=== PATIENT | male | born 1970 | race American Indian/Alaskan Native ===

== ENCOUNTER 2016-10-09 04:19 | Inpatient (IN) | payer MEDICAID ==
[2016-10-09 09:24] LABS: Basophils % (Auto) 0.8 % (0.0-1.8); Hematocrit 36.2 % (35.5-45.6); Hemoglobin 11.3 gm/dl (11.8-15.2); Mean Corpuscular HGB Conc 31 % (32-34); Mean Corpuscular Volume 79 fl (84-94); Platelet Count 384 K/mm3 (140-440); Red Blood Count 4.58 M/mm3 (3.65-5.03); Red Cell Distribution Width 16.2 % (13.2-15.2); White Blood Count 12.6 K/mm3 (4.5-11.0)
[2016-10-09 09:27] LABS: Mean Corpuscular Hemoglobin 25 pg (28-32)
[2016-10-09] MEDS ORDERED: NACL 0.9% 1000 ML 1,000 ML IV ONE (09:57)
--- NOTE | 2016-10-09 10:15 | XRay Report ---
LEFT ANKLE RADIOGRAPHS INDICATION: Wound infection. Evaluate for osteomyelitis. COMPARISON: None similar at this institution. FINDINGS: AP, lateral and oblique left ankle radiographs demonstrate moderate lateral soft tissue swelling with approximately 5 mm wound overlying the lateral malleolus. Subtle underlying cortical lucency also noted with possible periosteal reaction/thickening along the distal fibular neck. Intact ankle mortise, medial malleolus and talar dome contour. CONCLUSION: Left ankle lateral soft tissue swelling/ulceration and possible underlying lateral malleolus osteomyelitis, as described. Please correlate. Thank you for the opportunity to participate in this patient's care.
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
[2016-10-09 11:00] LABS: Anion Gap 20 mmol/L; BUN/Creatinine Ratio 13.75; Blood Urea Nitrogen 11 mg/dL (9-20); Calcium 8.3 mg/dL (8.4-10.2); Carbon Dioxide 20 mmol/L (22-30); Glucose 106 mg/dL (75-100); Potassium 4.4 mmol/L (3.6-5.0); Sodium 137 mmol/L (137-145)
[2016-10-09] MEDS ORDERED: LEVAQUIN 750MG/150ML 750 MG/150 ML BAG IV ONE (11:03)
[2016-10-09] MEDS ORDERED: VANCOMYCIN/NS 1 GM/250 ML 1 GM/250 ML BAG IV ONE (11:03)
[2016-10-09] MEDS ORDERED: MORPHINE IV ONE (12:02)
--- NOTE | 2016-10-09 12:59 | History and Physical Report ---
History of Present Illness History of present illness: 46 YO Male with Sacral Decub, Nicotine Dependence presents to ED for evaluation. Pt states that he has been experiencing pain and over to the left ankle and the left side of the buttock with concern for an infection of chronic wounds for the past 3 weeks, with worsening symptoms over the past 2 days. Pt denies any fever, Chills, CP, Palpitations, nausea, vomiting, chest pain, shortness of breath, or recent ill contacts. PT seen and evaluated in ED and found to have Left ankle cellulitis that is suspicious for osteomyelitis. Past History Past Medical History: other (Nicotine Dependence, Sacral Decub) Past Surgical History: bowel surgery, Other (back surgery) Social history: single, Lives alone, smoking. denies: alcohol abuse, prescription drug abuse, IV drug use Family history: hypertension Medications and Allergies Allergies Allergy/AdvReac Type Severity Reaction Status Date / Time No Known Allergies Allergy Unverified 10/09/16 05:00 Home Medications Medication Instructions Recorded Confirmed Last Taken Type Cyclobenzaprine [Flexeril] 10 mg PO HS 10/09/16 10/09/16 10/08/16 History Gabapentin [Neurontin] 600 mg PO TID 10/09/16 10/09/16 10/09/16 History Lisinopril [Zestril] 20 mg PO QDAY 10/09/16 10/09/16 10/08/16 History Oxycodone HCl/Acetaminophen 1 each PO Q6H 10/09/16 10/09/16 10/09/16 History [Percocet 7.5/325 mg] Review of Systems All systems: negative Constitutional: other (Left ankle pain, ) Exam - Constitutional Vitals: Temp Pulse Resp BP Pulse Ox 98.8 F 110 H 16 119/78 97 10/09/16 04:51 10/09/16 09:53 10/09/16 09:53 10/09/16 09:53 10/09/16 09:53 General appearance: Present: mild distress, cachectic - EENT Eyes: Present: PERRL ENT: hearing intact, clear oral mucosa - Neck Neck: Present: supple, normal ROM - Respiratory Respiratory effort: normal Respiratory: bilateral: CTA - Cardiovascular Heart Sounds: Present: S1 & S2. Absent: rub, click - Extremities Extremities: pulses symmetrical, No edema Extremity abnormal: ulceration, erythema, pulses diminished Peripheral Pulses: abnormal - Abdominal General gastrointestinal: Present: soft, non-tender, non-distended, normal bowel sounds Male genitourinary: Present: normal - Integumentary Integumentary: Present: clear, dry, decreased turgor - Musculoskeletal Musculoskeletal: generalized weakness - Psychiatric Psychiatric: appropriate mood/affect, cooperative - Neurologic Neurologic: CNII-XII intact Results - Labs CBC & Chem 7: 10/09/16 09:05 10/09/16 10:27 Labs: Abnormal lab results 10/09/16 10/09/16 Range/Units 09:05 10:27 WBC 12.6 H (4.5-11.0) K/mm3 Hgb 11.3 L (11.8-15.2) gm/dl MCV 79 L (84-94) fl MCH 25 L (28-32) pg MCHC 31 L (32-34) % RDW 16.2 H (13.2-15.2) % [place] # 0.9 H (0.0-0.8) K/mm3 Seg Neutrophils % 75.1 H (40.0-70.0) % Seg Neutrophils # 9.5 H (1.8-7.7) K/mm3 Carbon Dioxide 20 L (22-30) mmol/L Glucose 106 H (75-100) mg/dL Calcium 8.3 L (8.4-10.2) mg/dL Assessment and Plan - Patient Problems (1) Sepsis Current Visit: Yes Status: Acute Qualifiers: Sepsis type: S Plan to address problem: Sepsis protocl: IVF, IV abx, supportive care, monitor uop q shift, (2) Sacral decubitus ulcer Current Visit: Yes Status: Acute Plan to address problem: wound care consult, Q 2 turns, supportive care. (3) Osteomyelitis of left ankle Current Visit: Yes Status: Suspected Qualifiers: Osteomyelitis type: unspecified type Qualified Code(s): M86.9 - Osteomyelitis, unspecified Plan to address problem: IV abx, wound care, wound evaluation, (4) DVT prophylaxis Current Visit: Yes Status: Acute
[2016-10-09] MEDS ORDERED: ZOFRAN IV PRN (13:24)
[2016-10-09] MEDS ORDERED: VANCOMYCIN VIAL IV ONE (13:24)
[2016-10-09] MEDS ORDERED: DUONEB *Not for PRN Use IH (13:24)
[2016-10-09] MEDS ORDERED: TYLENOL PO PRN (13:24)
[2016-10-09] MEDS: ZOSYN/NS 4.5GM/100ML 4.5 GM/100 ML VIAL IV SCH (13:38)
[2016-10-09] MEDS ORDERED: VANCOMYCIN 1,750 MG in NACL 0.9% 500 ML 500 ML IV ONE (13:45)
[2016-10-09] MEDS ORDERED: PROVENTIL IH PRN (13:50)
[2016-10-09] MEDS ORDERED: VANCOMYCIN PHARMACY TO DOSE IV SCH (14:00)
--- NOTE | 2016-10-09 14:52 | Admit Criteria Form ---
Admission Criteria Documentation: OSTEOMYELITIS Clinical Indications for Admission to Inpatient Care (Place 'X' for any and all applicable criteria) Admission is indicated by 1 or more of the following (1)(2)(3)(4)(5)(6): [X ] I. Significant systemic illness indicated by 2 or more of the following: [ ]a) Core (eg rectal) temperature greater or equal [id number](37.8C) in an adult [ ]b) Oral temperature[A] greater than or equal to 99.3 degrees F ( 37.4 degrees C) in an adult [X]c) Heart rate greater than 90 beats per minute [ ]d) Respiratory rate greater than 20 breaths per minute or PaCO2 less than 32 mm Hg (4.3 kPa) [ X]e) White blood cell count > 12,000/mm3 (12 x109/L) or < 4000/mm3 ( 4 x109/L) or > 10% band cells [ ] II. Hemodynamic instability [ ] III. Severe pain requiring acute inpatient management [ ] IV. Bacteremia [ ] V. Altered Mental status that is severe or persistent [ ] . Limb-threatening infection [ ] VII. Suspected necrotizing soft tissue infection (e.g., gas in tissue) [ ] VIII.Surgical intervention required (e.g., bone or soft tissue debridement, removal of foreign body, or revascularization procedure) not performable in outpatient or emergency department level of care(7) [ ] IX. Appropriate monitoring and therapy (IV antibiotics) cannot be immediately arranged for home or outpatient setting [ ] X. Failure of outpatient treatment [ ] XI. High-risk comorbid condition present including 1 or more of the following: [ ]a) Poorly controlled diabetes (e.g., HbA1c greater than 10% (0.1)) [ ]b) Vascular insufficiency to affected area [ ]c) Cirrhosis [ ]d) Neutropenia [ ]e) Asplenia [ ]f) Immunosuppression (e.g., chronic systemic corticosteroid use) [ ]g) Symptomatic heart failure [ ] XII. Joint involvement (e.g., septic arthritis) suspected [ ] XIII.Vertebral osteomyelitis [ ] XIV. Skull-base osteomyelitis (e.g.,"malignant external otitis")[A](8)(9)(10 ) Extended stay beyond goal length of stay may be needed for(1)(3)(4)(5)(24)(25): [ ]a) Inadequate clinical response to antibiotics (e.g., continued fever, hypotension) [ ]b) Bacteremia [ ]c) Surgical intervention needed (e.g., beyond superficial debridement)(26) [ ]d) Vertebral osteomyelitis with spinal cord compression, abscess formation, or mechanical instability [ ]e) Antibiotic-resistant organism identified (e.g., methicillin-resistant Staphylococcal aureus) [ ]f) Severe concomitant cellulitis [ ]g) Acute metabolic disorder [ ]h) Unstable comorbidities (e.g., heart failure, renal insufficiency, immunosuppressed state)(28) [ ]i) Clinically significant malnutrition [ ]j) Acute renal failure The original [facility] content created by [facility] has been revised. The portions of the content which have been revised are identified through the use of italic text or in bold, and [facility] has neither reviewed nor approved the modified material. All other unmodified content is copyright [facility].Edition 2016. Admission Criteria Met: Yes
[2016-10-09] MEDS ORDERED: PERCOCET 5/325 PO PRN ×2 (15:13→22:07)
[2016-10-09] MEDS: FLEXERIL PO SCH (22:00)
[2016-10-09] MEDS: NEURONTIN PO SCH (23:14)
[2016-10-10] MEDS: ZOSYN/NS 4.5GM/100ML 4.5 GM/100 ML VIAL IV SCH ×4 (01:01→21:04)
[2016-10-10] MEDS: MORPHINE IV PRN ×6 (02:44→21:04)
[2016-10-10] MEDS ORDERED: VANCOMYCIN 1,250 MG in NACL 0.9% 250ML 250 ML IV SCH (03:00)
[2016-10-10] MEDS: ZESTRIL PO SCH (09:48)
[2016-10-10] MEDS: NEURONTIN PO SCH ×3 (09:49→21:06)
--- NOTE | 2016-10-10 10:37 | Progress Note ---
Assessment and Plan Assessment and plan: Sepsis. Continue IV antibiotics. Follow-up blood and wound cultures. Sacral decubitus ulcer. Continue wound care. Supportive care. Left ankle osteomyelitis. Plain films suggest osteomyelitis. MRI of the left ankle for further evaluation. Consider ID consultation. DVT prophylaxis. History Interval history: No new issues overnight. Hospitalist Physical - Constitutional Vitals: Temp Pulse Resp BP Pulse Ox 98.5 F 67 15 132/87 99 10/10/16 07:35 10/10/16 07:35 10/10/16 07:35 10/10/16 07:35 10/10/16 07:35 General appearance: Present: no acute distress, cachectic - EENT Eyes: Present: PERRL, EOM intact ENT: hearing intact, clear oral mucosa, dentition normal - Neck Neck: Present: supple, normal ROM - Respiratory Respiratory effort: normal Respiratory: bilateral: CTA - Cardiovascular Rhythm: regular Heart Sounds: Present: S1 & S2. Absent: gallop, rub - Extremities Extremities: no ischemia, No edema, Full ROM - Abdominal General gastrointestinal: soft, non-tender, non-distended, normal bowel sounds - Integumentary Integumentary: Present: clear, warm, dry - Neurologic Neurologic: CNII-XII intact, moves all extremities Results - Labs CBC & Chem 7: 10/09/16 09:05 10/09/16 10:27 Labs: Laboratory Last Values WBC 12.6 K/mm3 (4.5-11.0) H 10/09/16 09:05 RBC 4.58 M/mm3 (3.65-5.03) 10/09/16 09:05 Hgb 11.3 gm/dl (11.8-15.2) L 10/09/16 09:05 Hct 36.2 % (35.5-45.6) 10/09/16 09:05 MCV 79 fl (84-94) L 10/09/16 09:05 MCH 25 pg (28-32) L 10/09/16 09:05 MCHC 31 % (32-34) L 10/09/16 09:05 RDW 16.2 % (13.2-15.2) H 10/09/16 09:05 Plt Count 384 K/mm3 (140-440) 10/09/16 09:05 Lymph % (Auto) 14.1 % (13.4-35.0) 10/09/16 09:05 [place] % (Auto) 7.0 % (0.0-7.3) 10/09/16 09:05 Eos % (Auto) 3.0 % (0.0-4.3) 10/09/16 09:05 Baso % (Auto) 0.8 % (0.0-1.8) 10/09/16 09:05 Lymph # 1.8 K/mm3 (1.2-5.4) 10/09/16 09:05 [place] # 0.9 K/mm3 (0.0-0.8) H 10/09/16 09:05 Eos # 0.4 K/mm3 (0.0-0.4) 10/09/16 09:05 Baso # 0.1 K/mm3 (0.0-0.1) 10/09/16 09:05 Seg Neutrophils % 75.1 % (40.0-70.0) H 10/09/16 09:05 Seg Neutrophils # 9.5 K/mm3 (1.8-7.7) H 10/09/16 09:05 Sodium 137 mmol/L (137-145) 10/09/16 10:27 Potassium 4.4 mmol/L (3.6-5.0) 10/09/16 10:27 Chloride 101.0 mmol/L (98-107) 10/09/16 10:27 Carbon Dioxide 20 mmol/L (22-30) L 10/09/16 10:27 Anion Gap 20 mmol/L 10/09/16 10:27 BUN 11 mg/dL (9-20) 10/09/16 10:27 Creatinine 0.8 mg/dL (0.8-1.5) 10/09/16 10:27 Estimated GFR > 60 ml/min 10/09/16 10:27 BUN/Creatinine Ratio 13.75 % 10/09/16 10:27 Glucose 106 mg/dL (75-100) H 10/09/16 10:27 Lactic Acid 1.00 mmol/L (0.7-2.0) 10/09/16 13:36 Calcium 8.3 mg/dL (8.4-10.2) L 10/09/16 10:27 Blood Type O POSITIVE 07/10/17 13:36 Antibody Screen TNR 10/09/16 13:36 GRANT Antibody Screen Negative 10/09/16 13:36
--- NOTE | 2016-10-10 15:02 | Query-Ulcer ---
Dear Date:__10/10/16 Content Architect/CDS:__Natalia Phone#:___[phone] Exercise your independent professional judgment when responding to query. Questions asked do not imply a particular answer is desired or expected. We greatly appreciate your clarification on this issue. Clinical Documentation States: 46 year old male was admitted on 10/09/16. The IM H&P note on 10/09/16 states "46 YO Male with Sacral Decub, Nicotine Dependence presents to ED for evaluation. Pt states that he has been experiencing pain and over to the left ankle and the left side of the buttock with concern for an infection of chronic wounds for the past 3 weeks, with worsening symptoms over the past 2 days. PT seen and evaluated in ED and found to have Left ankle cellulitis that is suspicious for osteomyelitis." The hospitalist note on 10/10/16 states "Assessment and plan: Sacral decubitus ulcer. Continue wound care. Supportive care. Left ankle osteomyelitis. Plain films suggest osteomyelitis. MRI of the left ankle for further evaluation. Consider ID consultation." The wound care nurse's note states "Left lateral ankle wound measures 2x1.8x0.6. Small area of undermining just under skin at 1-3oclock that measures approx 0.6cm. Small amount of serosanguineous drainage noted with odor. Wound is positive for osteomyelitis in ankle. Wound cleansed with wound cleanser. packed with mesalt. covered with adhesive foam dressing. Left buttock wound measures [id number]. Moderate amount of serosanguineous drainage noted with no odor. Wound bed is very clean and beefy red. Wound cleansed with wound cleanser. packed with 3 pieces of mesalt. covered with ABD pad, secured with tape." Please specify the cause of Ulcer: [ ] Diabetic Ulcer [ ] Pressure Ulcer [ ] Venous Stasis Ulcer [ ] Arterial Ulcers (Ischemic Ulcer) [ ] Other: [x ] Unspecified Please specify the stage below: [ ] Stage I (pre-ulcer skin changes limited to persistent focal erythema) [x ] Stage II (abrasion, blister, and partial thickness skin loss) [ ] Stage III (full thickness skin loss with subcutaneous necrosis/damage) [ ] Stage IV (necrosis of soft tissues through to underlying muscle, tendon, bone) [ ] Unstageable [ ] Unable to determine Present on Admission: [ ] Yes (Y) [ ] Clinically undeterminable (W) [ ] No (N) Please also document response in your Progress Notes and/or Discharge Summary and indicate if the condition was present on admission. MTDD
[2016-10-10] MEDS: VANCOMYCIN/NS 1 GM/250 ML 1 GM/250 ML BAG IV SCH ×2 (15:26→21:05)
[2016-10-10] MEDS: FLEXERIL PO SCH (21:06)
[2016-10-11] MEDS: MORPHINE IV PRN ×5 (03:50→22:46)
[2016-10-11] MEDS: ZOSYN/NS 4.5GM/100ML 4.5 GM/100 ML VIAL IV SCH ×3 (05:29→22:45)
[2016-10-11] MEDS: VANCOMYCIN/NS 1 GM/250 ML 1 GM/250 ML BAG IV SCH ×3 (05:30→22:45)
[2016-10-11 06:55] LABS: Basophils % (Auto) 1.1 % (0.0-1.8); Eosinophils % (Auto) 7.8 % (0.0-4.3); Hematocrit 35.9 % (35.5-45.6); Hemoglobin 11.4 gm/dl (11.8-15.2); Mean Corpuscular HGB Conc 32 % (32-34); Mean Corpuscular Volume 81 fl (84-94); Platelet Count 356 K/mm3 (140-440); Red Blood Count 4.43 M/mm3 (3.65-5.03); Red Cell Distribution Width 16.9 % (13.2-15.2); White Blood Count 7.2 K/mm3 (4.5-11.0)
[2016-10-11 06:58] LABS: Mean Corpuscular Hemoglobin 26 pg (28-32)
[2016-10-11 07:23] LABS: Anion Gap 14 mmol/L; Blood Urea Nitrogen 10 mg/dL (9-20); Calcium 8.7 mg/dL (8.4-10.2); Carbon Dioxide 28 mmol/L (22-30); Chloride 103.5 mmol/L (98-107); Glucose 79 mg/dL (75-100); Potassium 4.6 mmol/L (3.6-5.0); Sodium 141 mmol/L (137-145)
[2016-10-11] MEDS: NEURONTIN PO SCH ×3 (08:01→22:45)
--- NOTE | 2016-10-11 12:10 | Progress Note ---
Assessment and Plan Assessment and plan: Sepsis. Continue IV antibiotics. Follow-up blood and wound cultures. Sacral decubitus ulcer. Continue wound care. Supportive care. Left ankle osteomyelitis. Plain films suggest osteomyelitis. Bone scan for further evaluation. Consider ID consultation. Podiatry consultation. DVT prophylaxis. History Interval history: No new issues overnight. Hospitalist Physical - Constitutional Vitals: Temp Pulse Resp BP Pulse Ox 97.9 F 69 18 123/78 99 10/11/16 08:00 10/11/16 08:00 10/11/16 08:00 10/11/16 08:00 10/11/16 08:00 General appearance: Present: no acute distress, cachectic - EENT Eyes: Present: PERRL, EOM intact ENT: hearing intact, clear oral mucosa, dentition normal - Neck Neck: Present: supple, normal ROM - Respiratory Respiratory effort: normal Respiratory: bilateral: CTA - Cardiovascular Rhythm: regular Heart Sounds: Present: S1 & S2. Absent: gallop, rub - Extremities Extremities: no ischemia, No edema, Full ROM - Abdominal General gastrointestinal: soft, non-tender, non-distended, normal bowel sounds - Integumentary Integumentary: Present: clear, warm, dry - Neurologic Neurologic: CNII-XII intact, moves all extremities Results - Labs CBC & Chem 7: 10/11/16 06:21 10/11/16 06:21 Labs: Laboratory Last Values WBC 7.2 K/mm3 (4.5-11.0) 10/11/16 06:21 RBC 4.43 M/mm3 (3.65-5.03) 10/11/16 06:21 Hgb 11.4 gm/dl (11.8-15.2) L 10/11/16 06:21 Hct 35.9 % (35.5-45.6) 10/11/16 06:21 MCV 81 fl (84-94) L 10/11/16 06:21 MCH 26 pg (28-32) L 10/11/16 06:21 MCHC 32 % (32-34) 10/11/16 06:21 RDW 16.9 % (13.2-15.2) H 10/11/16 06:21 Plt Count 356 K/mm3 (140-440) 10/11/16 06:21 Lymph % (Auto) 31.4 % (13.4-35.0) 10/11/16 06:21 [place] % (Auto) 8.1 % (0.0-7.3) H 10/11/16 06:21 Eos % (Auto) 7.8 % (0.0-4.3) H 10/11/16 06:21 Baso % (Auto) 1.1 % (0.0-1.8) 10/11/16 06:21 Lymph # 2.3 K/mm3 (1.2-5.4) 10/11/16 06:21 [place] # 0.6 K/mm3 (0.0-0.8) 10/11/16 06:21 Eos # 0.6 K/mm3 (0.0-0.4) H 10/11/16 06:21 Baso # 0.1 K/mm3 (0.0-0.1) 10/11/16 06:21 Seg Neutrophils % 51.6 % (40.0-70.0) 10/11/16 06:21 Seg Neutrophils # 3.7 K/mm3 (1.8-7.7) 10/11/16 06:21 Sodium 141 mmol/L (137-145) 10/11/16 06:21 Potassium 4.6 mmol/L (3.6-5.0) 10/11/16 06:21 Chloride 103.5 mmol/L (98-107) 10/11/16 06:21 Carbon Dioxide 28 mmol/L (22-30) D 10/11/16 06:21 Anion Gap 14 mmol/L 10/11/16 06:21 BUN 10 mg/dL (9-20) 10/11/16 06:21 Creatinine 0.8 mg/dL (0.8-1.5) 10/11/16 06:21 Estimated GFR > 60 ml/min 10/11/16 06:21 BUN/Creatinine Ratio 12.50 % 10/11/16 06:21 Glucose 79 mg/dL (75-100) 10/11/16 06:21 Lactic Acid 1.00 mmol/L (0.7-2.0) 10/09/16 13:36 Calcium 8.7 mg/dL (8.4-10.2) 10/11/16 06:21 Blood Type O POSITIVE 10/09/16 13:36 Antibody Screen TNR 10/09/16 13:36 GRANT Antibody Screen Negative 10/09/16 13:36
[2016-10-11] MEDS: ZESTRIL PO SCH (13:02)
[2016-10-11] MEDS: FLEXERIL PO SCH (22:45)
[2016-10-12] MEDS: MORPHINE IV PRN ×6 (01:36→20:18)
[2016-10-12] MEDS: ZOSYN/NS 4.5GM/100ML 4.5 GM/100 ML VIAL IV SCH ×2 (05:10→16:39)
[2016-10-12 08:15] LABS: Basophils % (Auto) 0.8 % (0.0-1.8); Eosinophils % (Auto) 7.7 % (0.0-4.3); Hematocrit 34.1 % (35.5-45.6); Hemoglobin 10.8 gm/dl (11.8-15.2); Mean Corpuscular HGB Conc 32 % (32-34); Mean Corpuscular Volume 80 fl (84-94); Platelet Count 353 K/mm3 (140-440); Red Blood Count 4.24 M/mm3 (3.65-5.03); Red Cell Distribution Width 16.8 % (13.2-15.2); White Blood Count 7.7 K/mm3 (4.5-11.0)
[2016-10-12 08:24] LABS: Anion Gap 16 mmol/L; Blood Urea Nitrogen 8 mg/dL (9-20); Calcium 8.6 mg/dL (8.4-10.2); Carbon Dioxide 26 mmol/L (22-30); Chloride 104.5 mmol/L (98-107); Glucose 93 mg/dL (75-100); Potassium 4.4 mmol/L (3.6-5.0); Sodium 142 mmol/L (137-145)
[2016-10-12 08:34] LABS: Mean Corpuscular Hemoglobin 26 pg (28-32)
--- NOTE | 2016-10-12 08:45 | Consultation ---
History of Present Illness - Reason for Consult Consult date: 10/12/16 Osteomyelitis Requesting physician: HE IBRAHIM - History of Present Illness Patient was off the floor for a bone scan. Will complete consult tomorrow. Past History Past Medical History: other (Nicotine Dependence, Sacral Decub) Past Surgical History: bowel surgery, Other (back surgery) Social history: single, Lives alone, smoking. denies: alcohol abuse, prescription drug abuse, IV drug use Family history: hypertension Medications and Allergies Allergies Allergy/AdvReac Type Severity Reaction Status Date / Time No Known Allergies Allergy Unverified 10/09/16 05:00 Home Medications Medication Instructions Recorded Confirmed Last Taken Type Cyclobenzaprine [Flexeril] 10 mg PO HS 10/09/16 10/09/16 10/08/16 History Gabapentin [Neurontin] 600 mg PO TID 10/09/16 10/09/16 10/09/16 History Lisinopril [Zestril] 20 mg PO QDAY 10/09/16 10/09/16 10/08/16 History Oxycodone HCl/Acetaminophen 1 each PO Q6H 10/09/16 10/09/16 10/09/16 History [Percocet 7.5/325 mg] Active Meds: Active Medications Acetaminophen (Tylenol) 650 mg PO Q4H PRN PRN Reason: Pain MILD(1-3)/Fever >100.5/PIERRE Albuterol (Proventil) 2.5 mg IH Q6HRT PRN PRN Reason: Wheezing Cyclobenzaprine HCl (Flexeril) 10 mg PO [facility] Last Admin: 10/11/16 22:45 Dose: 10 mg Gabapentin (Neurontin) 300 mg PO TID [facility] Last Admin: 10/11/16 22:45 Dose: 300 mg Piperacillin Sod/Tazobactam Sod (Zosyn/Ns 4.5gm/100ml) 4.5 gm in 100 mls @ 200 mls/hr IV Q8HR [facility] PRN Reason: Protocol Last Admin: 10/12/16 05:10 Dose: 200 mls/hr Vancomycin HCl (Vancomycin/Ns 1 Gm/250 Ml) 1 gm in 250 mls @ 166.667 mls/hr IV Q8HR [facility] Last Admin: 10/11/16 22:45 Dose: 166.667 mls/hr Lisinopril (Zestril) 20 mg PO QDAY [facility] Last Admin: 10/11/16 13:02 Dose: 20 mg Morphine Sulfate (Morphine) 2 mg IV Q3H PRN PRN Reason: Pain, Moderate (4-6) Last Admin: 10/12/16 05:06 Dose: 2 mg Ondansetron HCl (Zofran) 4 mg IV Q8H PRN PRN Reason: N/V unrelieved by Reglan Vancomycin HCl (Vancomycin Pharmacy To Dose) 1 each IV PKCONSULT [facility] PRN Reason: Protocol Review of Systems All systems: negative Physical Examination - Constitutional Vitals: Vital Signs Temp Pulse Resp BP Pulse Ox 98.0 F 76 18 113/70 96 10/12/16 00:00 10/12/16 00:00 10/12/16 05:06 10/12/16 00:00 10/12/16 00:00 Temperature -Last 24 Hours Temperature 98.0 F Temperature 98.1 F Results - Labs CBC & Chem 7: 10/12/16 07:47 10/12/16 07:47 Labs: Abnormal lab results 10/12/16 10/12/16 Range/Units 07:47 07:47 Hgb 10.8 L (11.8-15.2) gm/dl Hct 34.1 L (35.5-45.6) % MCV 80 L (84-94) fl MCH 26 L (28-32) pg RDW 16.8 H (13.2-15.2) % [place] % (Auto) 7.8 H (0.0-7.3) % Eos % (Auto) 7.7 H (0.0-4.3) % Eos # 0.6 H (0.0-0.4) K/mm3 BUN 8 L (9-20) mg/dL Microbiology 10/09/16 11:50 Peripheral/Venous Blood Culture - Preliminary NO GROWTH AFTER 48 HOURS 10/09/16 11:12 Peripheral/Venous Blood Culture - Preliminary NO GROWTH AFTER 48 HOURS 10/09/16 Unknown Ankle - Left Wound Culture - Preliminary Beta Hemoltyic Strep Group G Assessment and Plan - Patient Problems (1) Osteomyelitis of left ankle Current Visit: Yes Status: Suspected Qualifiers: Osteomyelitis type: unspecified type Qualified Code(s): M86.9 - Osteomyelitis, unspecified Plan to address problem: Patient was off the floor for a bone scan. Will complete consult tomorrow.
[2016-10-12] MEDS: NEURONTIN PO SCH ×3 (09:26→20:29)
[2016-10-12] MEDS: ZESTRIL PO SCH (09:26)
--- NOTE | 2016-10-12 10:54 | Progress Note ---
Assessment and Plan Assessment and plan: Sepsis. Continue IV antibiotics. Follow-up blood and wound cultures. Sacral decubitus ulcer. Continue wound care. Supportive care. Left ankle osteomyelitis. Plain films suggest osteomyelitis. Bone scan for further evaluation. ID consultation. Podiatry consultation pending. Continue IV antibiotics. DVT prophylaxis. History Interval history: No new issues overnight. Hospitalist Physical - Constitutional Vitals: Temp Pulse Resp BP Pulse Ox 98.6 F 70 18 120/82 99 10/12/16 08:00 10/12/16 08:00 10/12/16 08:00 10/12/16 09:26 10/12/16 08:00 General appearance: Present: no acute distress - EENT Eyes: Present: PERRL, EOM intact ENT: hearing intact, clear oral mucosa, dentition normal - Neck Neck: Present: supple, normal ROM - Respiratory Respiratory effort: normal Respiratory: bilateral: CTA - Cardiovascular Rhythm: regular Heart Sounds: Present: S1 & S2. Absent: gallop, rub - Extremities Extremities: no ischemia, No edema, Full ROM - Abdominal General gastrointestinal: soft, non-tender, non-distended, normal bowel sounds - Integumentary Integumentary: Present: clear, warm, dry - Neurologic Neurologic: CNII-XII intact, moves all extremities Results - Labs CBC & Chem 7: 10/12/16 07:47 10/12/16 07:47 Labs: Laboratory Last Values WBC 7.7 K/mm3 (4.5-11.0) 10/12/16 07:47 RBC 4.24 M/mm3 (3.65-5.03) 10/12/16 07:47 Hgb 10.8 gm/dl (11.8-15.2) L 10/12/16 07:47 Hct 34.1 % (35.5-45.6) L 10/12/16 07:47 MCV 80 fl (84-94) L 10/12/16 07:47 MCH 26 pg (28-32) L 10/12/16 07:47 MCHC 32 % (32-34) 10/12/16 07:47 RDW 16.8 % (13.2-15.2) H 10/12/16 07:47 Plt Count 353 K/mm3 (140-440) 10/12/16 07:47 Lymph % (Auto) 32.1 % (13.4-35.0) 10/12/16 07:47 [place] % (Auto) 7.8 % (0.0-7.3) H 10/12/16 07:47 Eos % (Auto) 7.7 % (0.0-4.3) H 10/12/16 07:47 Baso % (Auto) 0.8 % (0.0-1.8) 10/12/16 07:47 Lymph # 2.5 K/mm3 (1.2-5.4) 10/12/16 07:47 [place] # 0.6 K/mm3 (0.0-0.8) 10/12/16 07:47 Eos # 0.6 K/mm3 (0.0-0.4) H 10/12/16 07:47 Baso # 0.1 K/mm3 (0.0-0.1) 10/12/16 07:47 Seg Neutrophils % 51.6 % (40.0-70.0) 10/12/16 07:47 Seg Neutrophils # 4.0 K/mm3 (1.8-7.7) 10/12/16 07:47 Sodium 142 mmol/L (137-145) 10/12/16 07:47 Potassium 4.4 mmol/L (3.6-5.0) 10/12/16 07:47 Chloride 104.5 mmol/L (98-107) 10/12/16 07:47 Carbon Dioxide 26 mmol/L (22-30) 10/12/16 07:47 Anion Gap 16 mmol/L 10/12/16 07:47 BUN 8 mg/dL (9-20) L 10/12/16 07:47 Creatinine 0.8 mg/dL (0.8-1.5) 10/12/16 07:47 Estimated GFR > 60 ml/min 10/12/16 07:47 BUN/Creatinine Ratio 10.00 % 10/12/16 07:47 Glucose 93 mg/dL (75-100) 10/12/16 07:47 Lactic Acid 1.00 mmol/L (0.7-2.0) 10/09/16 13:36 Calcium 8.6 mg/dL (8.4-10.2) 10/12/16 07:47 Blood Type O POSITIVE 10/09/16 13:36 Antibody Screen TNR 07/10/17 13:36 GRANT Antibody Screen Negative 10/09/16 13:36
[2016-10-12] MEDS ORDERED: VANCOMYCIN 1,250 MG in NACL 0.9% 250ML 250 ML IV SCH (14:00)
[2016-10-12] MEDS: ROCEPHIN/NS 1 GM/50 ML 1 GM/50 ML BAG IV SCH (17:17)
[2016-10-12] MEDS: VANCOMYCIN/NS 1 GM/250 ML 1 GM/250 ML BAG IV SCH (19:38)
[2016-10-12] MEDS: FLEXERIL PO SCH (21:48)
[2016-10-13] MEDS: MORPHINE IV PRN ×7 (00:22→23:17)
[2016-10-13 07:29] LABS: Eosinophils % (Auto) 7.4 % (0.0-4.3); Hematocrit 34.5 % (35.5-45.6); Hemoglobin 10.9 gm/dl (11.8-15.2); Mean Corpuscular HGB Conc 32 % (32-34); Mean Corpuscular Volume 80 fl (84-94); Platelet Count 361 K/mm3 (140-440); Red Blood Count 4.31 M/mm3 (3.65-5.03); Red Cell Distribution Width 16.4 % (13.2-15.2); White Blood Count 7.3 K/mm3 (4.5-11.0)
[2016-10-13 07:34] LABS: Mean Corpuscular Hemoglobin 25 pg (28-32)
[2016-10-13 07:42] LABS: Anion Gap 12 mmol/L; BUN/Creatinine Ratio 11.25; Blood Urea Nitrogen 9 mg/dL (9-20); Calcium 8.8 mg/dL (8.4-10.2); Carbon Dioxide 32 mmol/L (22-30); Chloride 100.1 mmol/L (98-107); Glucose 73 mg/dL (75-100); Potassium 4.2 mmol/L (3.6-5.0); Sodium 140 mmol/L (137-145)
[2016-10-13] MEDS: NEURONTIN PO SCH ×3 (08:11→19:59)
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
[2016-10-13] MEDS: LEVAQUIN PO SCH (10:58)
[2016-10-13] MEDS: ZESTRIL PO SCH (10:58)
[2016-10-13] MEDS: ROCEPHIN/NS 1 GM/50 ML 1 GM/50 ML BAG IV SCH (10:59)
--- NOTE | 2016-10-13 11:42 | Progress Note ---
Assessment and Plan Assessment and plan: Sepsis. Continue IV antibiotics. Follow-up blood and wound cultures. Sacral decubitus ulcer. Continue wound care. Supportive care. Left ankle osteomyelitis. Plain films suggest osteomyelitis. Bone scan for further evaluation. ID following. Podiatry consultation pending. Continue IV antibiotics. DVT prophylaxis. History Interval history: No new issues overnight. Hospitalist Physical - Constitutional Vitals: Temp Pulse Resp BP Pulse Ox 97.8 F 76 20 136/68 99 10/13/16 07:00 10/13/16 07:00 10/13/16 07:00 10/13/16 10:58 10/13/16 07:00 General appearance: Present: no acute distress, well-nourished - EENT Eyes: Present: PERRL, EOM intact ENT: hearing intact, clear oral mucosa, dentition normal - Neck Neck: Present: supple, normal ROM - Respiratory Respiratory effort: normal Respiratory: bilateral: CTA - Cardiovascular Rhythm: regular Heart Sounds: Present: S1 & S2. Absent: gallop, rub - Extremities Extremities: no ischemia, No edema, Full ROM - Abdominal General gastrointestinal: soft, non-tender, non-distended, normal bowel sounds - Integumentary Integumentary: Present: clear, warm, dry - Neurologic Neurologic: CNII-XII intact, moves all extremities Results - Labs CBC & Chem 7: 10/13/16 07:05 10/13/16 07:05 Labs: Laboratory Last Values WBC 7.3 K/mm3 (4.5-11.0) 10/13/16 07:05 RBC 4.31 M/mm3 (3.65-5.03) 10/13/16 07:05 Hgb 10.9 gm/dl (11.8-15.2) L 10/13/16 07:05 Hct 34.5 % (35.5-45.6) L 10/13/16 07:05 MCV 80 fl (84-94) L 10/13/16 07:05 MCH 25 pg (28-32) L 10/13/16 07:05 MCHC 32 % (32-34) 10/13/16 07:05 RDW 16.4 % (13.2-15.2) H 10/13/16 07:05 Plt Count 361 K/mm3 (140-440) 10/13/16 07:05 Lymph % (Auto) 29.9 % (13.4-35.0) 10/13/16 07:05 [place] % (Auto) 8.3 % (0.0-7.3) H 10/13/16 07:05 Eos % (Auto) 7.4 % (0.0-4.3) H 10/13/16 07:05 Baso % (Auto) 1.0 % (0.0-1.8) 10/13/16 07:05 Lymph # 2.2 K/mm3 (1.2-5.4) 10/13/16 07:05 [place] # 0.6 K/mm3 (0.0-0.8) 10/13/16 07:05 Eos # 0.5 K/mm3 (0.0-0.4) H 10/13/16 07:05 Baso # 0.1 K/mm3 (0.0-0.1) 10/13/16 07:05 Seg Neutrophils % 53.4 % (40.0-70.0) 10/13/16 07:05 Seg Neutrophils # 3.9 K/mm3 (1.8-7.7) 10/13/16 07:05 Sodium 140 mmol/L (137-145) 10/13/16 07:05 Potassium 4.2 mmol/L (3.6-5.0) 10/13/16 07:05 Chloride 100.1 mmol/L (98-107) 10/13/16 07:05 Carbon Dioxide 32 mmol/L (22-30) H 10/13/16 07:05 Anion Gap 12 mmol/L 10/13/16 07:05 BUN 9 mg/dL (9-20) 10/13/16 07:05 Creatinine 0.8 mg/dL (0.8-1.5) 10/13/16 07:05 Estimated GFR > 60 ml/min 10/13/16 07:05 BUN/Creatinine Ratio 11.25 % 10/13/16 07:05 Glucose 73 mg/dL (75-100) L 10/13/16 07:05 Lactic Acid 1.00 mmol/L (0.7-2.0) 10/09/16 13:36 Calcium 8.8 mg/dL (8.4-10.2) 10/13/16 07:05 Vancomycin Trough 13.5 ug/mL (5.0-20.0) 10/12/16 07:47 Blood Type O POSITIVE 10/09/16 13:36 Antibody Screen TNR 10/09/16 13:36 GRANT Antibody Screen Negative 10/09/16 13:36
--- NOTE | 2016-10-13 14:16 | Nuclear Medicine Report ---
Three-phase bone scan left distal leg and ankle including whole body bone scan: Examination performed with 25 mm technetium 99 MDP. Findings: There is diffuse increase in activity noted in the soft tissue of the distal left leg and ankle in the early vascular phase. In the delayed phase there is focal area of increase activity identified at the lateral malleolus and the adjacent distal fibula. There is suspicious minimal activity also noted at the adjacent medial malleolus which may be reactive. Impression: Finding suggestive cellulitis left leg and osteomyelitis involving the distal fibula and the adjacent lateral malleolus.
[2016-10-13] MEDS: FLEXERIL PO SCH (22:44)
[2016-10-14] MEDS: MORPHINE IV PRN ×6 (02:43→21:04)
[2016-10-14 07:22] LABS: Basophils % (Auto) 0.9 % (0.0-1.8); Eosinophils % (Auto) 7.5 % (0.0-4.3); Hematocrit 34.7 % (35.5-45.6); Hemoglobin 11.1 gm/dl (11.8-15.2); Mean Corpuscular HGB Conc 32 % (32-34); Mean Corpuscular Volume 81 fl (84-94); Platelet Count 353 K/mm3 (140-440); Red Blood Count 4.31 M/mm3 (3.65-5.03); Red Cell Distribution Width 16.7 % (13.2-15.2)
[2016-10-14 07:30] LABS: Anion Gap 19 mmol/L; BUN/Creatinine Ratio 14.28; Blood Urea Nitrogen 10 mg/dL (9-20); Calcium 9.1 mg/dL (8.4-10.2); Carbon Dioxide 26 mmol/L (22-30); Chloride 100.2 mmol/L (98-107); Glucose 101 mg/dL (75-100); Sodium 141 mmol/L (137-145)
[2016-10-14 07:31] LABS: Mean Corpuscular Hemoglobin 26 pg (28-32)
--- NOTE | 2016-10-14 08:26 | Progress Note ---
Assessment and Plan - Patient Problems (1) Osteomyelitis of left ankle Current Visit: Yes Status: Suspected Qualifiers: Osteomyelitis type: unspecified type Qualified Code(s): M86.9 - Osteomyelitis, unspecified Plan to address problem: 1. Continue Levaquin to complete 4-6 weeks of therapy. 2. Local wound care with debridement is recommended. 3. Outpatient wound clinic follow-up. No braces. Subjective Date of service: 10/14/16 Principal diagnosis: Left Ankle Osteomyelitis Interval history: Remains stable. Afebrile. No new complaints. Objective - Constitutional Vitals: Vital Signs Temp Pulse Resp BP Pulse Ox 98.1 F 80 16 131/85 97 10/13/16 23:00 10/13/16 23:00 10/13/16 23:00 10/13/16 23:00 10/13/16 23:00 Temperature -Last 24 Hours Temperature 98.1 F Temperature 97.8 F General appearance: Present: no acute distress, other (eating breakfast) - EENT Eyes: no scleral icterus, no conjunctival injection - Neck Neck: supple - Respiratory Respiratory effort: normal Respiratory: bilateral: CTA - Cardiovascular Rhythm: regular Heart Sounds: Present: S1 & S2 Extremity abnormal: other (left foot wrapped, not removed, no obvious drainage) - Gastrointestinal General gastrointestinal: Present: soft, non-distended - Integumentary Integumentary: clear, no rash - Neurologic Neurologic: no moves all extremities (lower extremity paralysis) - Psychiatric Psychiatric: appropriate mood/affect - Labs CBC & Chem 7: 10/14/16 06:44 10/14/16 06:44 Labs: Abnormal lab results 10/14/16 10/14/16 Range/Units 06:44 06:44 Hgb 11.1 L (11.8-15.2) gm/dl Hct 34.7 L (35.5-45.6) % MCV 81 L (84-94) fl MCH 26 L (28-32) pg RDW 16.7 H (13.2-15.2) % [place] % (Auto) 7.9 H (0.0-7.3) % Eos % (Auto) 7.5 H (0.0-4.3) % Eos # 0.5 H (0.0-0.4) K/mm3 Creatinine 0.7 L (0.8-1.5) mg/dL Glucose 101 H (75-100) mg/dL Microbiology 10/09/16 11:50 Peripheral/Venous Blood Culture - Preliminary NO GROWTH AFTER 4 DAYS 10/09/16 11:12 Peripheral/Venous Blood Culture - Preliminary NO GROWTH AFTER 4 DAYS 10/09/16 Unknown Ankle - Left Wound Culture - Final Beta Hemoltyic Strep Group G [place] Species
[2016-10-14] MEDS: LEVAQUIN PO SCH (09:33)
[2016-10-14] MEDS: ZESTRIL PO SCH (09:33)
[2016-10-14] MEDS: NEURONTIN PO SCH ×3 (09:34→21:05)
--- NOTE | 2016-10-14 09:37 | Progress Note ---
Assessment and Plan Assessment and plan: Sepsis. Continue IV antibiotics. Follow-up blood and wound cultures. Sacral decubitus ulcer. Continue wound care. Supportive care. Left ankle osteomyelitis. Plain films suggest osteomyelitis. Bone scan suggestive of cellulitis to the left leg and osteomyelitis involving the left distal fibula and the adjacent lateral malleolus. ID following. Patient may need debridement. Orthopedic consultation pending. Continue IV antibiotics for 4-6 weeks per ID recommendations. DVT prophylaxis. History Interval history: No new issues overnight. Hospitalist Physical - Constitutional Vitals: Temp Pulse Resp BP Pulse Ox 97.3 F L 63 20 144/92 99 10/14/16 08:00 10/14/16 08:00 10/14/16 08:00 10/14/16 08:00 10/14/16 08:00 General appearance: Present: no acute distress, other (eating breakfast) - EENT Eyes: Present: PERRL, EOM intact ENT: hearing intact, clear oral mucosa, dentition normal - Neck Neck: Present: supple, normal ROM - Respiratory Respiratory effort: normal Respiratory: bilateral: CTA - Cardiovascular Rhythm: regular Heart Sounds: Present: S1 & S2. Absent: gallop, rub - Extremities Extremities: no ischemia, No edema, Full ROM - Abdominal General gastrointestinal: soft, non-tender, non-distended, normal bowel sounds - Integumentary Integumentary: Present: clear, warm, dry - Neurologic Neurologic: CNII-XII intact, moves all extremities Results - Labs CBC & Chem 7: 10/15/16 05:38 10/15/16 05:38 Labs: Laboratory Last Values WBC 7.0 K/mm3 (4.5-11.0) 10/14/16 06:44 RBC 4.31 M/mm3 (3.65-5.03) 10/14/16 06:44 Hgb 11.1 gm/dl (11.8-15.2) L 10/14/16 06:44 Hct 34.7 % (35.5-45.6) L 10/14/16 06:44 MCV 81 fl (84-94) L 10/14/16 06:44 MCH 26 pg (28-32) L 10/14/16 06:44 MCHC 32 % (32-34) 10/14/16 06:44 RDW 16.7 % (13.2-15.2) H 10/14/16 06:44 Plt Count 353 K/mm3 (140-440) 10/14/16 06:44 Lymph % (Auto) 28.0 % (13.4-35.0) 10/14/16 06:44 [place] % (Auto) 7.9 % (0.0-7.3) H 10/14/16 06:44 Eos % (Auto) 7.5 % (0.0-4.3) H 10/14/16 06:44 Baso % (Auto) 0.9 % (0.0-1.8) 10/14/16 06:44 Lymph # 2.0 K/mm3 (1.2-5.4) 10/14/16 06:44 [place] # 0.6 K/mm3 (0.0-0.8) 10/14/16 06:44 Eos # 0.5 K/mm3 (0.0-0.4) H 10/14/16 06:44 Baso # 0.1 K/mm3 (0.0-0.1) 10/14/16 06:44 Seg Neutrophils % 55.7 % (40.0-70.0) 10/14/16 06:44 Seg Neutrophils # 3.9 K/mm3 (1.8-7.7) 10/14/16 06:44 Sodium 141 mmol/L (137-145) 10/14/16 06:44 Potassium 4.0 mmol/L (3.6-5.0) 10/14/16 06:44 Chloride 100.2 mmol/L (98-107) 10/14/16 06:44 Carbon Dioxide 26 mmol/L (22-30) 10/14/16 06:44 Anion Gap 19 mmol/L 10/14/16 06:44 BUN 10 mg/dL (9-20) 10/14/16 06:44 Creatinine 0.7 mg/dL (0.8-1.5) L 10/14/16 06:44 Estimated GFR > 60 ml/min 10/14/16 06:44 BUN/Creatinine Ratio 14.28 % 10/14/16 06:44 Glucose 101 mg/dL (75-100) H 10/14/16 06:44 Lactic Acid 1.00 mmol/L (0.7-2.0) 10/09/16 13:36 Calcium 9.1 mg/dL (8.4-10.2) 10/14/16 06:44 Vancomycin Trough 13.5 ug/mL (5.0-20.0) 10/12/16 07:47 Blood Type O POSITIVE 10/09/16 13:36 Antibody Screen TNR 10/09/16 13:36 [facility] Antibody Screen Negative 10/09/16 13:36
[2016-10-14] MEDS: FLEXERIL PO SCH (21:05)
[2016-10-15] MEDS: MORPHINE IV PRN ×6 (00:17→20:25)
[2016-10-15 06:04] LABS: Basophils % (Auto) 0.9 % (0.0-1.8); Eosinophils % (Auto) 8.4 % (0.0-4.3); Hematocrit 37.4 % (35.5-45.6); Hemoglobin 12.1 gm/dl (11.8-15.2); Mean Corpuscular HGB Conc 32 % (32-34); Mean Corpuscular Volume 80 fl (84-94); Platelet Count 372 K/mm3 (140-440); Red Blood Count 4.69 M/mm3 (3.65-5.03); Red Cell Distribution Width 16.3 % (13.2-15.2); White Blood Count 8.5 K/mm3 (4.5-11.0)
[2016-10-15 06:06] LABS: Mean Corpuscular Hemoglobin 26 pg (28-32)
[2016-10-15 06:21] LABS: Anion Gap 22 mmol/L; BUN/Creatinine Ratio 16.66; Blood Urea Nitrogen 15 mg/dL (9-20); Calcium 9.4 mg/dL (8.4-10.2); Carbon Dioxide 25 mmol/L (22-30); Chloride 99.8 mmol/L (98-107); Glucose 79 mg/dL (75-100); Potassium 4.7 mmol/L (3.6-5.0); Sodium 142 mmol/L (137-145)
[2016-10-15] MEDS: LEVAQUIN PO SCH (09:46)
[2016-10-15] MEDS: NEURONTIN PO SCH ×3 (09:46→20:27)
[2016-10-15] MEDS: ZESTRIL PO SCH (09:46)
--- NOTE | 2016-10-15 11:21 | Progress Note ---
Assessment and Plan Assessment and plan: Sepsis. Continue IV antibiotics. Follow-up blood and wound cultures. Sacral decubitus ulcer. Continue wound care. Supportive care. Left ankle osteomyelitis. Plain films suggest osteomyelitis. Bone scan suggestive of cellulitis to the left leg and osteomyelitis involving the left distal fibula and the adjacent lateral malleolus. ID following. Patient may need debridement. Orthopedic consultation pending. Continue Levaquin for 4-6 weeks per ID recommendations. DVT prophylaxis. History Interval history: No new issues overnight. Hospitalist Physical - Constitutional Vitals: Temp Pulse Resp BP Pulse Ox 98.1 F 85 20 132/96 99 10/15/16 08:00 10/15/16 08:00 10/15/16 08:00 10/15/16 08:00 10/15/16 08:00 General appearance: Present: no acute distress, other (eating breakfast) - EENT Eyes: Present: PERRL, EOM intact ENT: hearing intact, clear oral mucosa, dentition normal - Neck Neck: Present: supple, normal ROM - Respiratory Respiratory effort: normal Respiratory: bilateral: CTA - Cardiovascular Rhythm: regular Heart Sounds: Present: S1 & S2. Absent: gallop, rub - Extremities Extremities: no ischemia, No edema, Full ROM - Abdominal General gastrointestinal: soft, non-tender, non-distended, normal bowel sounds - Integumentary Integumentary: Present: clear, warm, dry - Neurologic Neurologic: CNII-XII intact, moves all extremities Results - Labs CBC & Chem 7: 10/15/16 05:38 10/15/16 05:38 Labs: Laboratory Last Values WBC 8.5 K/mm3 (4.5-11.0) 10/15/16 05:38 RBC 4.69 M/mm3 (3.65-5.03) 10/15/16 05:38 Hgb 12.1 gm/dl (11.8-15.2) 10/15/16 05:38 Hct 37.4 % (35.5-45.6) 10/15/16 05:38 MCV 80 fl (84-94) L 10/15/16 05:38 MCH 26 pg (28-32) L 10/15/16 05:38 MCHC 32 % (32-34) 10/15/16 05:38 RDW 16.3 % (13.2-15.2) H 10/15/16 05:38 Plt Count 372 K/mm3 (140-440) 10/15/16 05:38 Lymph % (Auto) 26.7 % (13.4-35.0) 10/15/16 05:38 [place] % (Auto) 7.2 % (0.0-7.3) 10/15/16 05:38 Eos % (Auto) 8.4 % (0.0-4.3) H 10/15/16 05:38 Baso % (Auto) 0.9 % (0.0-1.8) 10/15/16 05:38 Lymph # 2.3 K/mm3 (1.2-5.4) 10/15/16 05:38 [place] # 0.6 K/mm3 (0.0-0.8) 10/15/16 05:38 Eos # 0.7 K/mm3 (0.0-0.4) H 10/15/16 05:38 Baso # 0.1 K/mm3 (0.0-0.1) 10/15/16 05:38 Seg Neutrophils % 56.8 % (40.0-70.0) 10/15/16 05:38 Seg Neutrophils # 4.8 K/mm3 (1.8-7.7) 10/15/16 05:38 Sodium 142 mmol/L (137-145) 10/15/16 05:38 Potassium 4.7 mmol/L (3.6-5.0) 10/15/16 05:38 Chloride 99.8 mmol/L (98-107) 10/15/16 05:38 Carbon Dioxide 25 mmol/L (22-30) 10/15/16 05:38 Anion Gap 22 mmol/L 10/15/16 05:38 BUN 15 mg/dL (9-20) 10/15/16 05:38 Creatinine 0.9 mg/dL (0.8-1.5) 10/15/16 05:38 Estimated GFR > 60 ml/min 10/15/16 05:38 BUN/Creatinine Ratio 16.66 % 10/15/16 05:38 Glucose 79 mg/dL (75-100) 10/15/16 05:38 Lactic Acid 1.00 mmol/L (0.7-2.0) 10/09/16 13:36 Calcium 9.4 mg/dL (8.4-10.2) 10/15/16 05:38 Vancomycin Trough 13.5 ug/mL (5.0-20.0) 10/12/16 07:47 Blood Type O POSITIVE 10/09/16 13:36 Antibody Screen TNR 10/09/16 13:36 GRANT Antibody Screen Negative 10/09/16 13:36
[2016-10-15] MEDS: PERCOCET 5/325 PO PRN ×2 (16:10→23:57)
[2016-10-15] MEDS: FLEXERIL PO SCH (23:57)
[2016-10-16] MEDS: MORPHINE IV PRN ×4 (03:30→20:32)
[2016-10-16] MEDS: NEURONTIN PO SCH ×3 (07:41→20:34)
[2016-10-16] MEDS: ZESTRIL PO SCH (09:55)
[2016-10-16] MEDS: LEVAQUIN PO SCH (09:56)
[2016-10-16] MEDS: PERCOCET 5/325 PO PRN ×3 (09:56→23:31)
--- NOTE | 2016-10-16 10:11 | Progress Note ---
Assessment and Plan Assessment and plan: Sepsis. Continue IV antibiotics. Follow-up blood and wound cultures revealed beta-hemolytic strep group G and Alcaligenes. Sacral decubitus ulcer. Continue wound care. Supportive care. Left ankle osteomyelitis. Plain films suggest osteomyelitis. Bone scan suggestive of cellulitis to the left leg and osteomyelitis involving the left distal fibula and the adjacent lateral malleolus. ID following. Patient may need debridement. Orthopedic consultation pending. Continue Levaquin for 4-6 weeks per ID recommendations. DVT prophylaxis. Lovenox daily. History Interval history: No new issues overnight. Hospitalist Physical - Constitutional Vitals: Temp Pulse Resp BP Pulse Ox 97.6 F 78 20 134/94 97 10/16/16 08:00 10/16/16 08:00 10/16/16 08:00 10/16/16 08:00 10/16/16 08:00 General appearance: Present: no acute distress, other (eating breakfast) - EENT Eyes: Present: PERRL, EOM intact ENT: hearing intact, clear oral mucosa, dentition normal - Neck Neck: Present: supple, normal ROM - Respiratory Respiratory effort: normal Respiratory: bilateral: CTA - Cardiovascular Rhythm: regular Heart Sounds: Present: S1 & S2. Absent: gallop, rub - Extremities Extremities: no ischemia, No edema, Full ROM - Abdominal General gastrointestinal: soft, non-tender, non-distended, normal bowel sounds - Integumentary Integumentary: Present: clear, warm, dry - Neurologic Neurologic: CNII-XII intact, moves all extremities Results - Labs CBC & Chem 7: 10/15/16 05:38 10/15/16 05:38 Labs: Laboratory Last Values WBC 8.5 K/mm3 (4.5-11.0) 10/15/16 05:38 RBC 4.69 M/mm3 (3.65-5.03) 10/15/16 05:38 Hgb 12.1 gm/dl (11.8-15.2) 10/15/16 05:38 Hct 37.4 % (35.5-45.6) 10/15/16 05:38 MCV 80 fl (84-94) L 10/15/16 05:38 MCH 26 pg (28-32) L 10/15/16 05:38 MCHC 32 % (32-34) 10/15/16 05:38 RDW 16.3 % (13.2-15.2) H 10/15/16 05:38 Plt Count 372 K/mm3 (140-440) 10/15/16 05:38 Lymph % (Auto) 26.7 % (13.4-35.0) 10/15/16 05:38 [place] % (Auto) 7.2 % (0.0-7.3) 10/15/16 05:38 Eos % (Auto) 8.4 % (0.0-4.3) H 10/15/16 05:38 Baso % (Auto) 0.9 % (0.0-1.8) 10/15/16 05:38 Lymph # 2.3 K/mm3 (1.2-5.4) 10/15/16 05:38 [place] # 0.6 K/mm3 (0.0-0.8) 10/15/16 05:38 Eos # 0.7 K/mm3 (0.0-0.4) H 10/15/16 05:38 Baso # 0.1 K/mm3 (0.0-0.1) 10/15/16 05:38 Seg Neutrophils % 56.8 % (40.0-70.0) 10/15/16 05:38 Seg Neutrophils # 4.8 K/mm3 (1.8-7.7) 10/15/16 05:38 Sodium 142 mmol/L (137-145) 10/15/16 05:38 Potassium 4.7 mmol/L (3.6-5.0) 10/15/16 05:38 Chloride 99.8 mmol/L (98-107) 10/15/16 05:38 Carbon Dioxide 25 mmol/L (22-30) 10/15/16 05:38 Anion Gap 22 mmol/L 10/15/16 05:38 BUN 15 mg/dL (9-20) 10/15/16 05:38 Creatinine 0.9 mg/dL (0.8-1.5) 10/15/16 05:38 Estimated GFR > 60 ml/min 10/15/16 05:38 BUN/Creatinine Ratio 16.66 % 10/15/16 05:38 Glucose 79 mg/dL (75-100) 10/15/16 05:38 Lactic Acid 1.00 mmol/L (0.7-2.0) 10/09/16 13:36 Calcium 9.4 mg/dL (8.4-10.2) 10/15/16 05:38 Vancomycin Trough 13.5 ug/mL (5.0-20.0) 10/12/16 07:47 Blood Type O POSITIVE 10/09/16 13:36 Antibody Screen TNR 10/09/16 13:36 GRANT Antibody Screen Negative 10/09/16 13:36
[2016-10-16 12:33] LABS: Basophils % (Auto) 0.8 % (0.0-1.8); Eosinophils % (Auto) 7.6 % (0.0-4.3); Hematocrit 37.5 % (35.5-45.6); Hemoglobin 11.9 gm/dl (11.8-15.2); Mean Corpuscular HGB Conc 32 % (32-34); Mean Corpuscular Volume 81 fl (84-94); Platelet Count 345 K/mm3 (140-440); Red Blood Count 4.64 M/mm3 (3.65-5.03); Red Cell Distribution Width 16.5 % (13.2-15.2); White Blood Count 8.1 K/mm3 (4.5-11.0)
[2016-10-16 12:50] LABS: Anion Gap 20 mmol/L; BUN/Creatinine Ratio 16.66; Blood Urea Nitrogen 15 mg/dL (9-20); Calcium 8.9 mg/dL (8.4-10.2); Carbon Dioxide 26 mmol/L (22-30); Glucose 107 mg/dL (75-100); Mean Corpuscular Hemoglobin 26 pg (28-32); Potassium 4.6 mmol/L (3.6-5.0); Sodium 142 mmol/L (137-145)
--- NOTE | 2016-10-16 14:14 | Progress Note ---
Assessment and Plan - Patient Problems (1) Osteomyelitis of left ankle Current Visit: Yes Status: Suspected Qualifiers: Osteomyelitis type: unspecified type Qualified Code(s): M86.9 - Osteomyelitis, unspecified Plan to address problem: 1. Continue Levaquin to complete an anticipated course minimally through 2016. 2. If patient is tolerating therapy and there is good wound closure near the end of this course, then would extend therapy until 2016. 3. Continue follow with podiatry and wound care. 4. I will sign off. Please call again if there are additional questions or concerns. Subjective Date of service: 10/16/16 Principal diagnosis: Left Ankle Osteomyelitis Interval history: Afebrile. Stable without new complaints. Objective - Constitutional Vitals: Vital Signs Temp Pulse Resp BP Pulse Ox 97.6 F 78 20 134/94 97 10/16/16 08:00 10/16/16 08:00 10/16/16 08:00 10/16/16 08:00 10/16/16 08:00 Temperature -Last 24 Hours Temperature 97.6 F Temperature 98.2 F Temperature 97.9 F General appearance: Present: no acute distress, well-nourished - Respiratory Respiratory effort: normal Respiratory: bilateral: CTA, negative: rales - Cardiovascular Rhythm: regular Heart Sounds: Present: S1 & S2 - Gastrointestinal General gastrointestinal: Present: soft, non-tender, non-distended - Integumentary Integumentary: clear, no rash - Musculoskeletal Musculoskeletal: other (left ankle is wrapped, dressing not removed) - Neurologic Neurologic: CNII-XII intact, focal deficits (lower extremity paraplegia) - Psychiatric Psychiatric: appropriate mood/affect - Labs CBC & Chem 7: 10/16/16 11:31 10/16/16 11:31 Labs: Abnormal lab results 10/16/16 10/16/16 Range/Units 11:31 11:31 MCV 81 L (84-94) fl MCH 26 L (28-32) pg RDW 16.5 H (13.2-15.2) % [place] % (Auto) 8.9 H (0.0-7.3) % Eos % (Auto) 7.6 H (0.0-4.3) % Eos # 0.6 H (0.0-0.4) K/mm3 Glucose 107 H (75-100) mg/dL Microbiology 10/09/16 11:50 Peripheral/Venous Blood Culture - Final NO GROWTH AFTER 5 DAYS 10/09/16 11:12 Peripheral/Venous Blood Culture - Final NO GROWTH AFTER 5 DAYS 10/09/16 Unknown Ankle - Left Wound Culture - Final Beta Hemoltyic Strep Group G Alcaligenes Species
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
[2016-10-16] MEDS: FLEXERIL PO SCH (21:24)
[2016-10-16] MEDS ORDERED: LOVENOX SUB-Q SCH (22:00)
[2016-10-17] MEDS: MORPHINE IV PRN ×2 (03:03→09:08)
[2016-10-17] MEDS: PERCOCET 5/325 PO PRN (05:34)
[2016-10-17 07:44] LABS: Anion Gap 24 mmol/L; BUN/Creatinine Ratio 17.77; Blood Urea Nitrogen 16 mg/dL (9-20); Calcium 9.1 mg/dL (8.4-10.2); Carbon Dioxide 20 mmol/L (22-30); Chloride 103.3 mmol/L (98-107); Glucose 104 mg/dL (75-100); Potassium 4.5 mmol/L (3.6-5.0); Sodium 143 mmol/L (137-145)
[2016-10-17 08:18] VITALS: BP 116/78
--- NOTE | 2016-10-17 08:32 | Progress Note ---
Hospitalist Physical - Constitutional Vitals: Temp Pulse Resp BP Pulse Ox 97.9 F 62 20 116/78 98 10/17/16 08:00 10/17/16 08:00 10/17/16 08:00 10/17/16 08:00 10/17/16 08:00 General appearance: Present: no acute distress, well-nourished Results - Labs CBC & Chem 7: 10/16/16 11:31 10/17/16 05:57 Labs: Laboratory Last Values WBC 8.1 K/mm3 (4.5-11.0) 10/16/16 11:31 RBC 4.64 M/mm3 (3.65-5.03) 10/16/16 11:31 Hgb 11.9 gm/dl (11.8-15.2) 10/16/16 11:31 Hct 37.5 % (35.5-45.6) 10/16/16 11:31 MCV 81 fl (84-94) L 10/16/16 11:31 MCH 26 pg (28-32) L 10/16/16 11:31 MCHC 32 % (32-34) 10/16/16 11:31 RDW 16.5 % (13.2-15.2) H 10/16/16 11:31 Plt Count 345 K/mm3 (140-440) 10/16/16 11:31 Lymph % (Auto) 25.2 % (13.4-35.0) 10/16/16 11:31 [place] % (Auto) 8.9 % (0.0-7.3) H 10/16/16 11:31 Eos % (Auto) 7.6 % (0.0-4.3) H 10/16/16 11:31 Baso % (Auto) 0.8 % (0.0-1.8) 10/16/16 11:31 Lymph # 2.0 K/mm3 (1.2-5.4) 10/16/16 11:31 [place]hea # 0.7 K/mm3 (0.0-0.8) 10/16/16 11:31 Eos # 0.6 K/mm3 (0.0-0.4) H 10/16/16 11:31 Baso # 0.1 K/mm3 (0.0-0.1) 10/16/16 11:31 Seg Neutrophils % 57.5 % (40.0-70.0) 10/16/16 11:31 Seg Neutrophils # 4.7 K/mm3 (1.8-7.7) 10/16/16 11:31 Sodium 143 mmol/L (137-145) 10/17/16 05:57 Potassium 4.5 mmol/L (3.6-5.0) 10/17/16 05:57 Chloride 103.3 mmol/L (98-107) 10/17/16 05:57 Carbon Dioxide 20 mmol/L (22-30) L 10/17/16 05:57 Anion Gap 24 mmol/L 10/17/16 05:57 BUN 16 mg/dL (9-20) 10/17/16 05:57 Creatinine 0.9 mg/dL (0.8-1.5) 10/17/16 05:57 Estimated GFR > 60 ml/min 10/17/16 05:57 BUN/Creatinine Ratio 17.77 % 10/17/16 05:57 Glucose 104 mg/dL (75-100) H 10/17/16 05:57 Lactic Acid 1.00 mmol/L (0.7-2.0) 10/09/16 13:36 Calcium 9.1 mg/dL (8.4-10.2) 10/17/16 05:57 Vancomycin Trough 13.5 ug/mL (5.0-20.0) 10/12/16 07:47 Blood Type O POSITIVE 10/09/16 13:36 Antibody Screen TNR 10/09/16 13:36 GRANT Antibody Screen Negative 10/09/16 13:36
[2016-10-17] MEDS: ZESTRIL PO SCH (09:07)
[2016-10-17] MEDS: LEVAQUIN PO SCH (09:07)
[2016-10-17] MEDS: NEURONTIN PO SCH ×2 (09:07→14:42)
--- NOTE | 2016-10-17 10:16 | Discharge Summary ---
Addendum entered and electronically signed by JUANY FULTON NP 10/18/16 15:22 : time spent on performing the discharge 33 minutes Diagnosed Sepsis Left Sacral Decubitus ulcer. Osteomyelitis of left ankle Hypertension Original Note: Providers - Providers Date of Admission: 10/09/16 13:25 Date of discharge: 10/17/16 Attending physician: ISABEL FOWLER MD 10/09/16 19:42 Consult to Wound/ET Nurse [CONS] Routine Reason For Exam: wound eval 10/10/16 08:26 Consult to Wound/ET Nurse [CONS] Routine Reason For Exam: wound eval 10/11/16 12:09 Consult to Physician [CONS] Routine Consulting Provider: MANDA HARP Reason For Exam: osteo Place consult to:: DR. HARP Notified:: [employer] Phone number called:: [phone] Was contact made?: Yes If yes, spoke with:: TERRI Time called:: 13:40 Comment:: HECTOR NOTIFIED 10/11/16 12:10 Consult to Physician [CONS] Routine Consulting Provider: CLOBY SHER Reason For Exam: osteo Place consult to:: DR. SHER Notified:: DR. SHER Phone number called:: [phone] Was contact made?: Yes If yes, spoke with:: DR. SHER Time called:: 13:45 Comment:: HECTOR NOTIFIED 10/14/16 07:38 Consult to Physician [CONS] Routine Consulting Provider: TITUS KIM Reason For Exam: ankle wound Place consult to:: dr. kim Notified:: answering service Phone number called:: [phone] Was contact made?: No Time called:: 10:11 Comment:: left message on answering machine 10/16/16 11:25 Physical Therapy Evaluation and Treat [CONS] Routine Comment: Reason For Exam: le weakness Primary care physician: ASSISTANT PROFESSOR OF CHEMISTRY Hospitalization Condition: Stable Hospital course: Patient is a 46 YO Male with Sacral Decub, Nicotine Dependence presents to ED for evaluation. Pt states that he has been experiencing pain and over to the left ankle and the left side of the buttock with concern for an infection of chronic wounds for the past 3 weeks, with worsening symptoms over the past 2 days. Patient was diagnosed with Sepsis, Sacral decubitus ulcer, Osteomyelitis of left ankle, hypertension. He was treated with antibiotics, supplemental oxygen, nebulizer therapy and antihypertensive medication. Patient completed a full course of antibiotic. Patient cleared by Infectious diseases and orthopedic. He is being discharged on oral antibiotic along with wound care and hyperbaric oxygen therapy per ID and orthopedic recommendation. Patient clinically improved and stable for discharge. Patient was advised to follow up with podiatry and wound care. Also patient was advised to follow-up appointment in 1 week with orthopedic. Patient agreed upon course of action. Disposition: DC-30 STILL A PATIENT Core Measure Documentation - Palliative Care Palliative Care/ Comfort Measures: Not Applicable - Core Measures Any of the following diagnoses?: none Exam - Constitutional Vitals: Temp Pulse Resp BP Pulse Ox 97.9 F 62 20 116/78 98 10/17/16 08:00 10/17/16 08:00 10/17/16 08:00 10/17/16 08:00 10/17/16 08:00 General appearance: Present: no acute distress - EENT Eyes: Present: PERRL ENT: hearing intact - Neck Neck: Present: supple - Respiratory Respiratory effort: normal Respiratory: bilateral: CTA - Cardiovascular Heart rate: 72 - Extremities Extremities: abnormal (Ulcer to left buttock and left foot ) Extremity abnormal: ulceration (Ulcer to left buttock and left foot ) Peripheral Pulses: within normal limits - Abdominal General gastrointestinal: Present: soft, non-tender Male genitourinary: Present: deferred - Rectal Rectal Exam: deferred - Integumentary Integumentary: Present: clear (Ulcer to left buttock and left foot ), warm - Musculoskeletal Musculoskeletal: strength equal bilaterally - Psychiatric Psychiatric: appropriate mood/affect - Neurologic Neurologic: CNII-XII intact - Allied Health Allied health notes reviewed: nursing Plan Weight Bearing Status: Weight Bear as Tolerated Diet: low fat Wound: per wound nurse instructions Follow up with: PRIMARY CARE, [Primary Care Provider] - 3-5 Days Prescriptions: Levofloxacin [Levaquin] 750 mg PO QDAY #25 tablet oxyCODONE [Roxicodone TAB] 5 mg PO Q6HR PRN #14 tablet PRN Reason: Pain
== END 2016-10-17 14:46 | disposition home health service (06) | DRG 871 ==
LOC: ED 04:19 → 3A 13:25
PROVIDERS: ADMIT Internal Medicine; ATTEND Internal Medicine
DX: A41.9 Sepsis, unspecified organism (principal); L89.524 Pressure ulcer of left ankle, stage 4; L89.324 Pressure ulcer of left buttock, stage 4; L89.152 Pressure ulcer of sacral region, stage 2; F17.210 Nicotine dependence, cigarettes, uncomplicated; Z60.2 Problems related to living alone; M86.8X7 Other osteomyelitis, ankle and foot; I10 Essential (primary) hypertension; Z82.49 Family history of ischemic heart disease and other diseases of the circulatory system
CPT/HCPCS: 36415; 78315; 80048; 80202; 82140; 85025; 86850; 86900; 86901; 87040; 87076; 87116; 87186; 96361; 96365; 96368; 96375; 99285; 99406; A9503; J0696; J1650; J1956; J2270; J2405; J2543; J3370; J7030; J7040; J7050

== ENCOUNTER 2017-01-02 03:24 | Emergency (ER) | payer MEDICAID ==
[2017-01-02 04:17] VITALS: BP 113/78
[2017-01-02 05:21] LABS: Basophils % (Auto) 0.8 % (0.0-1.8); Eosinophils % (Auto) 7.1 % (0.0-4.3); Hemoglobin 11.2 gm/dl (11.8-15.2); Mean Corpuscular HGB Conc 32 % (32-34); Mean Corpuscular Volume 80 fl (84-94); Platelet Count 312 K/mm3 (140-440); Red Cell Distribution Width 17.6 % (13.2-15.2); White Blood Count 10.5 K/mm3 (4.5-11.0)
[2017-01-02 05:22] LABS: Mean Corpuscular Hemoglobin 26 pg (28-32)
[2017-01-02 05:30] LABS: Anion Gap 16 mmol/L; BUN/Creatinine Ratio 15; Blood Urea Nitrogen 12 mg/dL (9-20); Calcium 8.7 mg/dL (8.4-10.2); Carbon Dioxide 25 mmol/L (22-30); Chloride 101.8 mmol/L (98-107); Glucose 91 mg/dL (75-100); Sodium 139 mmol/L (137-145)
== END 2017-01-02 12:27 | disposition left against medical advice (07) ==
LOC: ED 03:24
DX: Z53.21 Procedure and treatment not carried out due to patient leaving prior to being seen by health care provider (principal)
CPT/HCPCS: 36415; 80048; 85025

== ENCOUNTER 2018-05-20 12:49 | Outpatient (CLI) | payer MEDICAID | END 2018-05-20 12:50 | disposition home or self-care (01) | LOC: WOUND 12:49 | CPT/HCPCS: 11042; G0463; 99215 ==

== ENCOUNTER 2018-06-03 13:14 | Outpatient (CLI) | payer MEDICAID ==
[2018-06-03] MEDS ORDERED: AD OINTMENT TP SCH (14:00)
[2018-06-03] MEDS ORDERED: XYLOCAINE TOPICAL 4% TP ONE (14:26)
== END 2018-06-03 13:15 | disposition home or self-care (01) ==
LOC: WOUND 13:14
PROVIDERS: ATTEND Surgery
DX: L97.322 Non-pressure chronic ulcer of left ankle with fat layer exposed (principal); L84 Corns and callosities; G62.9 Polyneuropathy, unspecified; I10 Essential (primary) hypertension; M54.9 Dorsalgia, unspecified; G89.29 Other chronic pain; F17.200 Nicotine dependence, unspecified, uncomplicated

== ENCOUNTER 2018-06-10 13:09 | Outpatient (CLI) | payer MEDICAID ==
[2018-06-10] MEDS ORDERED: SILVER NITRATE TP ONE (14:23)
[2018-06-11] MEDS ORDERED: AD OINTMENT TP SCH (10:00)
== END 2018-06-10 13:10 | disposition home or self-care (01) ==
LOC: WOUND 13:09
PROVIDERS: ATTEND Surgery
DX: S91.002D Unspecified open wound, left ankle, subsequent encounter (principal); I10 Essential (primary) hypertension; G62.9 Polyneuropathy, unspecified; G89.29 Other chronic pain; M54.9 Dorsalgia, unspecified; F17.200 Nicotine dependence, unspecified, uncomplicated; X58.XXXD Exposure to other specified factors, subsequent encounter
CPT/HCPCS: 17250; 87075; 87076; 87116; 87186

== ENCOUNTER 2018-06-17 12:59 | Outpatient (CLI) | payer MEDICAID ==
[2018-06-17] MEDS ORDERED: XYLOCAINE TOPICAL 4% TP ONE (13:01)
== END 2018-06-17 13:00 | disposition home or self-care (01) ==
LOC: WOUND 12:59
PROVIDERS: ATTEND Surgery
DX: S91.002D Unspecified open wound, left ankle, subsequent encounter (principal); G62.9 Polyneuropathy, unspecified; I10 Essential (primary) hypertension; M54.9 Dorsalgia, unspecified; G89.29 Other chronic pain; F17.200 Nicotine dependence, unspecified, uncomplicated; X58.XXXD Exposure to other specified factors, subsequent encounter

== ENCOUNTER 2018-06-27 10:47 | Outpatient (CLI) | payer MEDICAID ==
[2018-06-27] MEDS ORDERED: SILVER NITRATE TP ONE (11:08)
== END 2018-06-27 10:48 | disposition home or self-care (01) ==
LOC: WOUND 10:47
PROVIDERS: ATTEND Surgery
DX: S91.002D Unspecified open wound, left ankle, subsequent encounter (principal); I10 Essential (primary) hypertension; G60.9 Hereditary and idiopathic neuropathy, unspecified; G89.29 Other chronic pain; M54.9 Dorsalgia, unspecified; F17.200 Nicotine dependence, unspecified, uncomplicated; X58.XXXD Exposure to other specified factors, subsequent encounter
CPT/HCPCS: 36415; 80048; 97605

== ENCOUNTER 2018-06-27 12:35 | Outpatient (CLI) | payer MEDICAID ==
[2018-06-27 13:49] LABS: BUN/Creatinine Ratio 13; Blood Urea Nitrogen 10 mg/dL (9-20); Calcium 8.9 mg/dL (8.4-10.2); Hemolysis Index 2
== END 2018-06-27 12:36 | disposition home or self-care (01) ==
LOC: LAB 12:35
PROVIDERS: ATTEND Surgery
DX: L97.322 Non-pressure chronic ulcer of left ankle with fat layer exposed (principal); I10 Essential (primary) hypertension
CPT/HCPCS: 36415; 80048

== ENCOUNTER 2018-07-10 10:43 | Outpatient (CLI) | payer MEDICAID ==
[2018-07-10] MEDS ORDERED: SILVER NITRATE TP ONE (10:54)
[2018-07-10] MEDS ORDERED: XYLOCAINE TOPICAL 4% TP ONE (11:00)
== END 2018-07-10 10:44 | disposition home or self-care (01) ==
LOC: WOUND 10:43
PROVIDERS: ATTEND Surgery
DX: S91.002D Unspecified open wound, left ankle, subsequent encounter (principal); L84 Corns and callosities; I10 Essential (primary) hypertension; G62.9 Polyneuropathy, unspecified; G89.29 Other chronic pain; M54.9 Dorsalgia, unspecified; F17.200 Nicotine dependence, unspecified, uncomplicated; X58.XXXD Exposure to other specified factors, subsequent encounter

== ENCOUNTER 2018-07-17 10:49 | Outpatient (CLI) | payer MEDICAID | END 2018-07-17 10:50 | disposition home or self-care (01) | LOC: WOUND 10:49 | PROVIDERS: ATTEND Surgery | DX: S91.002D Unspecified open wound, left ankle, subsequent encounter (principal); I10 Essential (primary) hypertension; G60.9 Hereditary and idiopathic neuropathy, unspecified; G89.29 Other chronic pain; M54.9 Dorsalgia, unspecified; F17.200 Nicotine dependence, unspecified, uncomplicated; X58.XXXD Exposure to other specified factors, subsequent encounter ==

== ENCOUNTER 2018-07-25 09:41 | Outpatient (CLI) | payer MEDICAID ==
[2018-07-25] MEDS ORDERED: SILVER NITRATE TP ONE (11:00)
[2018-07-25] MEDS ORDERED: XYLOCAINE TOPICAL 4% TP ONE (11:00)
== END 2018-07-25 09:42 | disposition home or self-care (01) ==
LOC: WOUND 09:41
PROVIDERS: ATTEND Surgery
DX: S91.002D Unspecified open wound, left ankle, subsequent encounter (principal); I10 Essential (primary) hypertension; G60.9 Hereditary and idiopathic neuropathy, unspecified; G89.29 Other chronic pain; M54.9 Dorsalgia, unspecified; F17.200 Nicotine dependence, unspecified, uncomplicated; X58.XXXD Exposure to other specified factors, subsequent encounter

== ENCOUNTER 2018-07-31 09:50 | Outpatient (CLI) | payer MEDICAID ==
[2018-07-31 11:10] LABS: Blood Urea Nitrogen 11 mg/dL (9-20)
--- NOTE | 2018-07-31 17:17 | Cat Scan Report ---
PROCEDURE: CT left ankle with contrast. TECHNIQUE: Computerized axial tomography of the left ankle was performed after the intravenous admi nistration of iodinated noninonic contrast material. CT DOSE LENGTH PRODUCT: 310.9 mGycm HISTORY: Diseases of the skin and subcutaneous tissue COMPARISONS: CT left foot 12/14/2016. FINDINGS: The bones appear intact without acute fracture. There are some small accessory ossicles near the dist al end of the fibula. The joint spaces appear satisfactory. There is a deep soft tissue ulcer overlyi ng the lateral malleolus. There is no subcutaneous fluid to suggest an abscess. There is some soft ti ssue swelling. There are no definite signs of osteomyelitis. The vascular structures enhance normally . IMPRESSION: Soft tissue ulcer overlying the lateral malleolus. No evidence of an abscess or definite osteomyelitis. This document is electronically signed by Isak Tolbert MD., Jul 31 2018 05:15:27 PM ET
--- NOTE | 2018-07-31 20:17 | Vascular Lab Report ---
PROCEDURE: US LEFT LOWER EXTREMITY VENOUS DUPLEX DOPPLER TECHNIQUE: Duplex Doppler ultrasound of the LEFT common and superficial femoral, popliteal, posterio r tibial, and proximal deep femoral and greater saphenous veins was attempted. Benson scale imaging wit h and without compression, spectral waveform analysis with and without augmentation, and color flow D oppler were employed. CPT 37075-PL HISTORY: Pain and swelling COMPARISONS: None . FINDINGS: Deep Venous Thrombus: None . Superficial Venous Thrombus: None . Venous valvular incompetence: There is deep venous reflux in the left common femoral vein at 4100 ms . . Soft tissue abnormality: None . Other: Enlarged left inguinal lymph node measuring 2.5 cm. . IMPRESSION: No evidence of deep venous thrombosis .There is deep venous reflux in the left common fe moral vein at 4100 ms. . This document is electronically signed by Jorge Hassan MD., Jul 31 2018 08:16:12 PM ET
--- NOTE | 2018-07-31 20:19 | Vascular Lab Report ---
PROCEDURE: LEFT LOWER EXTREMITY ARTERIAL DUPLEX DOPPLER TECHNIQUE: Duplex Doppler ultrasound of either the LEFT lower extremity arteries or arterial bypass grafts was performed with image documentation. CPT 29255-EJ HISTORY: Left ankle were COMPARISONS: None . FINDINGS: Arterial waveforms: Triphasic . Thrombus/Stenosis: None . Color signal: Normal . Significant segmental velocity differential: None . Arterial bypass graft: Not present . IMPRESSION: No evidence of significant arterial insufficiency in the LEFT lower extremity. This document is electronically signed by Jorge Hassan MD., Jul 31 2018 08:17:55 PM ET
== END 2018-07-31 09:51 | disposition home or self-care (01) ==
LOC: VAS 09:50
PROVIDERS: ATTEND Surgery
DX: L97.322 Non-pressure chronic ulcer of left ankle with fat layer exposed (principal); L97.512 Non-pressure chronic ulcer of other part of right foot with fat layer exposed; L97.312 Non-pressure chronic ulcer of right ankle with fat layer exposed; G60.9 Hereditary and idiopathic neuropathy, unspecified; I10 Essential (primary) hypertension
CPT/HCPCS: 36415; 73701; 82565; 84520; 93926; 93971; Q9967

== ENCOUNTER 2018-08-08 09:55 | Outpatient (CLI) | payer MEDICAID ==
[2018-08-08] MEDS ORDERED: XYLOCAINE TOPICAL 4% TP NR (10:07)
== END 2018-08-08 09:56 | disposition home or self-care (01) ==
LOC: WOUND 09:55
PROVIDERS: ATTEND Surgery
DX: S91.002D Unspecified open wound, left ankle, subsequent encounter (principal); I10 Essential (primary) hypertension; G62.9 Polyneuropathy, unspecified; G89.29 Other chronic pain; M54.9 Dorsalgia, unspecified; F17.200 Nicotine dependence, unspecified, uncomplicated; X58.XXXD Exposure to other specified factors, subsequent encounter

== ENCOUNTER 2018-08-15 09:47 | Outpatient (CLI) | payer MEDICAID ==
[2018-08-15] MEDS ORDERED: SILVER NITRATE TP ONE (10:46)
== END 2018-08-15 09:48 | disposition home or self-care (01) ==
LOC: WOUND 09:47
PROVIDERS: ATTEND Surgery
DX: S91.002D Unspecified open wound, left ankle, subsequent encounter (principal); I10 Essential (primary) hypertension; G62.9 Polyneuropathy, unspecified; G89.29 Other chronic pain; M54.9 Dorsalgia, unspecified; F17.200 Nicotine dependence, unspecified, uncomplicated; X58.XXXD Exposure to other specified factors, subsequent encounter

== ENCOUNTER 2018-08-22 09:44 | Outpatient (CLI) | payer MEDICAID | END 2018-08-22 09:45 | disposition home or self-care (01) | LOC: WOUND 09:44 | PROVIDERS: ATTEND Surgery | DX: S91.002D Unspecified open wound, left ankle, subsequent encounter (principal); I10 Essential (primary) hypertension; G62.9 Polyneuropathy, unspecified; G89.29 Other chronic pain; M54.9 Dorsalgia, unspecified; F17.200 Nicotine dependence, unspecified, uncomplicated; X58.XXXD Exposure to other specified factors, subsequent encounter ==